=== PATIENT | female | born 1980 | race Caucasian/White ===

== ENCOUNTER → 2020-12-23 | Outpatient (CLI) | payer OTHER ==
[~2020-12-23] MED LIST: CIPRO250 M1 PO; NOHOMEMEDICATIONS; PERCOCET 5-3251 EACH PO; TAMSULOSIN HCL0.4 M1 PO; VICODIN 5-3001 EACH PO
[2020-12-23 16:10] LABS: HEMATOCRIT 32.5 % (37.0-47.0); HEMOGLOBIN 10.1 gm/dL (12.0-15.0); MCH 22.8 pg (26.0-34.0); MCHC 31.2 g/dL (28.0-37.0); MCV 73.2 fL (80.0-100.0); NUCLEATED RBCS 0 /100WBC; PLATELET COUNT* 245 thou/uL (150-400); RBC 4.44 mil/uL (4.20-5.00); RDW-CV 17.2 % (10.5-14.5)
[2020-12-23 17:04] LABS: ABSOLUTE EOSINOPHILS 0.5 thou/uL (0.0-0.7); ABSOLUTE LYMPHOCYTES 1.2 thou/uL (0.8-5.3); ABSOLUTE MONOCYTES 0.5 thou/uL (0.0-1.2); ABSOLUTE NEUTROPHILS 6.9 thou/uL (1.6-8.1); ANISOCYTOSIS 1+; PLATELET ESTIMATE ADEQUATE; POLYCHROMASIA Occasional
[2020-12-23 17:51] LABS: % SATURATION 4 % (20-39); IRON 15 ug/dL (50-175)
== END ==
LOC: M.LAB 15:52
PROVIDERS: ATTEND Internal Medicine Critical Care Medicine
DX: I27.20 Pulmonary hypertension, unspecified (principal); D64.9 Anemia, unspecified